=== PATIENT | male | born 1950 | race Caucasian/White ===

== ENCOUNTER → 2017-02-03 | Outpatient (CLI) | payer MEDICARE ==
[~2017-02-03] MED LIST: AMIO200T PO; AMLO10TA2 PO; ASPI-650 PO; ATEN25TA PO; CLON0.1T PO; LABE100T26 PO; LISI20TA PO; TERA5CAP3 PO
== END | disposition home or self-care (01) ==
LOC: CFH 13:36
PROVIDERS: ATTEND Internal Medicine Cardiovascular Disease
DX: I08.0 Rheumatic disorders of both mitral and aortic valves (principal); I10 Essential (primary) hypertension; I49.3 Ventricular premature depolarization
CPT/HCPCS: 93306

== ENCOUNTER 2018-08-25 07:44 | Inpatient (IN) | payer MEDICARE, OTHER ==
[~2018-08-25] VITALS: Ht 162.6 cm; Wt 54.3 kg
[~2018-08-25 07:44] MED LIST changes: -AMLO10TA2 PO; +AMLO10TA8 PO; -CLON0.1T PO; +CLON0.1T22 PO
[2018-08-25] MEDS ORDERED: HYDROmorphone 2 MG/ML, 1ML IVPush PRN (08:00)
--- NOTE | 2018-08-25 08:01 | NUR ---
Patient brought in by EMS for excessive weight loss, persistent vomiting, abdominal pain and increasing weakness. Patient reports he was recently diagnosed with renal failure, had an abdominal CT and was told there was "something wrong with my pancreas" so is scheduled for CT next week but felt he could not make it until then. Patient arrives alert, answering questions appropriately, in moderate distress. IV established by EMS prior to arrival with zofran 4mg administered en route. Call price placed within reach, continuous blood pressure, SPO2 and cardiac monitoring in place.
[2018-08-25] MEDS ORDERED: ONDANSETRON ODT 4 MG PO ONE (08:30)
[2018-08-25] MEDS ORDERED: ONDANSETRON ODT 4 MG ONE (08:37)
[2018-08-25] MEDS ORDERED: HYDROmorphone 2 MG/ML, 1ML ONE (08:38)
--- NOTE | 2018-08-25 08:57 | NUR ---
Patient medicated for pain as ordered and documented, supplemental oxygen via nasal cannula provided at 2LPM with dilaudid administration. Urinal at bedside for urine collection. Call price within reach.
[2018-08-25 09:39] LABS: MEAN CORPUSCULAR HEMOGLOBIN 31.8 pg (27.5-34.5); MEAN CORPUSCULAR HGB CONC 33.9 g/dL (33.2-36.2); MEAN CORPUSCULAR VOLUME 93.9 fL (81-97); MEAN PLATELET VOLUME 9.3 fL (7.4-10.4); PLATELET COUNT 336 x10^3/uL (130-400); RED BLOOD COUNT 4.15 x10^6/uL (4.38-5.82); RED CELL DISTRIBUTION WIDTH 16.5 % (9.4-14.8)
[2018-08-25 09:55] LABS: CHLORIDE 107 mmol/L (98-107)
[2018-08-25 10:00] LABS: ALANINE AMINOTRANSFERASE 245 U/L (12-78); ALKALINE PHOSPHATASE 466 U/L (45-117); ANION GAP 11 mmol/L (5-15); BILIRUBIN,TOTAL 14.1 mg/dL (0.2-1.0); CALCIUM 9.5 mg/dL (8.5-10.1); CREATININE 1.39 mg/dL (0.7-1.3); TOTAL PROTEIN 7.8 g/dL (6.4-8.2)
[2018-08-25] MEDS ORDERED: LISI-170 PO (10:16)
[2018-08-25] MEDS ORDERED: LABE300T2 PO (10:16)
--- NOTE | 2018-08-25 10:16 | NUR ---
Plan of care updated, patient reports he remains pain free. Waiting for abdominal ultrasound. Patient states he does not have urge to urinate at this time.
[2018-08-25 10:35] LABS: MD YES
[2018-08-25 10:37] LABS: BASOS#(MANUAL) 0.05 x10^3/uL (0-0.1); BASOS% (MANUAL) 1 % (0-1); LYMPH#(MANUAL) 1.15 x10^3/uL (1-3.4); LYMPHS% (MANUAL) 23 % (22-44); MONOS#(MANUAL) 0.15 x10^3/uL (0.3-2.7); MONOS% (MANUAL) 3 % (2-9); SEG#(MANUAL) 3.65 x10^3/uL (1.8-6.8); SEGS% (MANUAL) 73 % (42-75)
[2018-08-25 10:38] LABS: <RBC MORPHOLOGY> NORMAL
[2018-08-25 10:41] LABS: <PLATELET ESTIMATE> ADEQUATE; <PLT MORPHOLOGY> NORMAL PLT MORPH
--- NOTE | 2018-08-25 10:53 | NUR ---
Report to BRISEIDA Lantigua; care transferred at this time.
--- NOTE | 2018-08-25 11:20 | NUR ---
REPORT FROM RORO GOINS, ASSUME CARE OF PT AT THIS TIME. REVIEW OF CHART, NEED FOR UA STILL. PT REQUESTED TO PROVIDE UA, URINAL PROVIDED. CALL LIGHT WITHIN REACH.
--- NOTE | 2018-08-25 11:44 | NUR ---
URINE COLLECTED/SENT TO LAB. URINE DARK TEA COLORED. PT UPDATED ON POC, INCLUDING ADMISSION.
[2018-08-25 12:09] LABS: MICROSCOPIC INDICATED
[2018-08-25 12:14] LABS: CULTURE INDICATED? YES
[2018-08-25 12:58] VITALS: BP 169/113
[2018-08-25 13:20] VITALS: BP 169/113
[2018-08-25] MEDS ORDERED: hydrALAzine 20 MG/ML, 1ML IV PRN (14:00)
[2018-08-25] MEDS: SODIUM CHLORIDE 0.9% 1,000 ML IV SCH ×2 (14:02→22:28)
[2018-08-25] MEDS ORDERED: ONDANSETRON 2MG/ML, 2ML IVPush PRN (14:30)
[2018-08-25] MEDS ORDERED: TEMAZEPAM 15 MG CAPSULE PO PRN (14:30)
[2018-08-25 14:43] LABS: BILIRUBIN,TOTAL 14.3 mg/dL (0.2-1.0)
[2018-08-25 14:48] LABS: BILIRUBIN, DIRECT 10.4 mg/dL (0.1-0.2); BILIRUBIN,INDIRECT 3.9 mg/dL (0.0-2.0)
[2018-08-25 15:53] VITALS: BP 184/116
[2018-08-25] MEDS: ENOXAPARIN 40 MG/0.4 ML SQ SCH (15:54)
[2018-08-25] MEDS: hydrALAzine 20 MG/ML, 1ML IV PRN (15:55)
[2018-08-25] MEDS: morphine SULFATE 10 MG/ML, 1ML IVPush PRN ×2 (16:08→21:26)
[2018-08-25 16:12] VITALS: BP 146/95
[2018-08-25 18:50] VITALS: BP 147/96
[2018-08-26 00:50] VITALS: BP 148/95
[2018-08-26] MEDS: morphine SULFATE 10 MG/ML, 1ML IVPush PRN ×4 (04:52→19:53)
[2018-08-26 05:05] LABS: MEAN CORPUSCULAR HGB CONC 34.1 g/dL (33.2-36.2); MEAN CORPUSCULAR VOLUME 93.9 fL (81-97); MEAN PLATELET VOLUME 9.2 fL (7.4-10.4); PLATELET COUNT 302 x10^3/uL (130-400); RED BLOOD COUNT 3.73 x10^6/uL (4.38-5.82); RED CELL DISTRIBUTION WIDTH 16.7 % (9.4-14.8)
[2018-08-26 05:14] LABS: CHLORIDE 113 mmol/L (98-107)
[2018-08-26 05:26] LABS: ALANINE AMINOTRANSFERASE 206 U/L (12-78); ALBUMIN 2.7 g/dL (3.4-5.0); ALKALINE PHOSPHATASE 404 U/L (45-117); ANION GAP 8 mmol/L (5-15); BILIRUBIN,TOTAL 12.1 mg/dL (0.2-1.0); CALCIUM 9.3 mg/dL (8.5-10.1); CREATININE 1.26 mg/dL (0.7-1.3); TOTAL PROTEIN 7.1 g/dL (6.4-8.2)
[2018-08-26 06:03] LABS: MD YES
[2018-08-26 06:06] LABS: <PLATELET ESTIMATE> ADEQUATE; <PLT MORPHOLOGY> NORMAL PLT MORPH; <RBC MORPHOLOGY> NORMAL; EOS#(MANUAL) 0.04 x10^3/uL (0.0-0.4); EOS% (MANUAL) 1 % (1-7); LYMPH#(MANUAL) 1.41 x10^3/uL (1-3.4); LYMPHS% (MANUAL) 32 % (22-44); MONOS#(MANUAL) 0.35 x10^3/uL (0.3-2.7); MONOS% (MANUAL) 8 % (2-9); SEGS% (MANUAL) 59 % (42-75)
[2018-08-26] MEDS: SODIUM CHLORIDE 0.9% 1,000 ML IV SCH ×3 (06:15→23:04)
[2018-08-26 07:00] VITALS: BP 180/105
[2018-08-26] MEDS: hydrALAzine 20 MG/ML, 1ML IV PRN ×4 (08:24→19:12)
[2018-08-26] MEDS: PANTOPRAZOLE 40 MG IV IVPush SCH (08:26)
[2018-08-26 10:50] VITALS: BP 173/97
[2018-08-26 12:59] VITALS: BP 167/110
[2018-08-26 15:42] VITALS: BP 196/114
[2018-08-26] MEDS: ENOXAPARIN 40 MG/0.4 ML SQ SCH (15:42)
[2018-08-26 18:57] VITALS: BP_SYST 120; BP_SYST 172; BP_DIAS 104; BP_DIAS 79
[2018-08-26] MEDS: LABETALOL 300 MG TABLET PO SCH (19:53)
[2018-08-26] MEDS: LISINOPRIL 20 MG TABLET PO SCH (19:53)
[2018-08-26] MEDS ORDERED: TERAZOSIN 5MG CAPSULE PO SCH (21:00)
[2018-08-27 00:46] VITALS: BP 122/71
[2018-08-27 05:58] LABS: ALBUMIN 2.3 g/dL (3.4-5.0); ANION GAP 7 mmol/L (5-15); CHLORIDE 117 mmol/L (98-107)
[2018-08-27 06:02] LABS: ALANINE AMINOTRANSFERASE 180 U/L (12-78); ALKALINE PHOSPHATASE 327 U/L (45-117); BILIRUBIN,TOTAL 9.7 mg/dL (0.2-1.0); CREATININE 1.19 mg/dL (0.7-1.3); TOTAL PROTEIN 6.1 g/dL (6.4-8.2)
[2018-08-27 06:17] LABS: MEAN CORPUSCULAR HEMOGLOBIN 31.2 pg (27.5-34.5); MEAN CORPUSCULAR HGB CONC 33.1 g/dL (33.2-36.2); MEAN CORPUSCULAR VOLUME 94.3 fL (81-97); MEAN PLATELET VOLUME 9.8 fL (7.4-10.4); PLATELET COUNT 276 x10^3/uL (130-400); RED CELL DISTRIBUTION WIDTH 16.3 % (9.4-14.8)
[2018-08-27 06:43] VITALS: BP 170/94
[2018-08-27 07:22] LABS: MD YES
[2018-08-27] MEDS: LABETALOL 300 MG TABLET PO SCH (07:24)
[2018-08-27] MEDS: LISINOPRIL 20 MG TABLET PO SCH (07:24)
[2018-08-27] MEDS: PANTOPRAZOLE 40 MG IV IVPush SCH (07:25)
[2018-08-27] MEDS: SODIUM CHLORIDE 0.9% 1,000 ML IV SCH ×2 (07:25→15:00)
[2018-08-27 07:31] LABS: EOS#(MANUAL) 0.07 x10^3/uL (0.0-0.4); EOS% (MANUAL) 2 % (1-7); LYMPH#(MANUAL) 1.09 x10^3/uL (1-3.4); LYMPHS% (MANUAL) 32 % (22-44); MONOS#(MANUAL) 0.34 x10^3/uL (0.3-2.7); MONOS% (MANUAL) 10 % (2-9); SEGS% (MANUAL) 56 % (42-75)
[2018-08-27 07:32] LABS: <PLATELET ESTIMATE> ADEQUATE; ANISOCYTOSIS 1+; LARGE PLATELETS 1+; TARGET CELLS 1+
[2018-08-27] MEDS ORDERED: OXYC5TAB3 PO (12:27)
[2018-08-27] MEDS ORDERED: TRAM50TA2 PO (12:27)
[2018-08-27] MEDS ORDERED: PANT20TA2 PO (12:27)
[2018-08-27] MEDS ORDERED: ONDA4TAB13 SL (12:27)
[2018-08-27] MEDS ORDERED: POLY17PO5 PO (12:27)
[2018-08-27] MEDS ORDERED: hydrALAzine 20 MG/ML, 1ML IV ONE (12:30)
[2018-08-27] MEDS ORDERED: METOPROLOL TARTRATE 100 MG TABLET PO ONE (12:30)
[2018-08-27 13:15] VITALS: BP 154/82
[2018-08-27] MEDS: ENOXAPARIN 40 MG/0.4 ML SQ SCH (14:30)
== END 2018-08-27 17:22 | disposition home health service (06) | DRG 438 ==
LOC: ED 10:00 → EDIP 11:42 → 3NE 12:45
PROVIDERS: ADMIT Internal Medicine; ATTEND Internal Medicine
DX: K85.10 Biliary acute pancreatitis without necrosis or infection (principal); E43 Unspecified severe protein-calorie malnutrition; N17.0 Acute kidney failure with tubular necrosis; I50.30 Unspecified diastolic (congestive) heart failure; K80.21 Calculus of gallbladder without cholecystitis with obstruction; K86.2 Cyst of pancreas; I11.0 Hypertensive heart disease with heart failure; I48.0 Paroxysmal atrial fibrillation; N20.0 Calculus of kidney; N28.1 Cyst of kidney, acquired; N40.0 Benign prostatic hyperplasia without lower urinary tract symptoms; Z86.010 Personal history of colon polyps; Z68.20 Body mass index [BMI] 20.0-20.9, adult
CPT/HCPCS: 36415; 71045; 74183; 76700; 80053; 81001; 82105; 82247; 82248; 82378; 83690; 83735; 84100; 84443; 85025; 86301; 87086; 93005; G0378; J1170; J1650; Q0162; C9113; J0360; J2270; J7030

== ENCOUNTER 2018-08-29 09:04 | Day surgery (SDC) | payer MEDICARE, OTHER ==
[~2018-08-29] VITALS: Ht 162.6 cm; Wt 57.7 kg
[~2018-08-29 09:04] MED LIST changes: +LABE300T2 PO; +LISI-170 PO; +ONDA4TAB13 SL; +OXYC5TAB3 PO; +PANT20TA2 PO; +POLY17PO5 PO; +TRAM50TA2 PO
[2018-08-29] MEDS ORDERED: LACTATED RINGERS 1,000 ML IV SCH (09:58)
[2018-08-29 09:59] VITALS: BP 141/98
[2018-08-29] MEDS ORDERED: FENTANYL PF 100 MCG/2ML ONE ×2 (13:42→14:19)
[2018-08-29] MEDS ORDERED: ACETAMINOPHEN 325 MG TABLET PO PRN (14:00)
[2018-08-29] MEDS ORDERED: PROMETHAZINE 25 MG SUPP PR PRN (14:00)
[2018-08-29] MEDS ORDERED: ONDANSETRON 2MG/ML, 2ML IV PRN (14:00)
[2018-08-29] MEDS ORDERED: FENTANYL PF 100 MCG/2ML IV PRN (14:00)
[2018-08-29] MEDS ORDERED: MEPERIDINE/PF 25MG/0.5ML IVPush PRN (14:00)
[2018-08-29] MEDS ORDERED: PROMETHAZINE 25 MG/ML, 1ML IV PRN (14:00)
[2018-08-29] MEDS ORDERED: ONDANSETRON ODT 8 MG PO PRN (14:00)
[2018-08-29] MEDS ORDERED: OXYcodone 5 MG/5 ML ORAL.SOL UDC PO PRN (14:00)
[2018-08-29] MEDS ORDERED: GLYCOPYRROLATE 0.2MG/1ML, 5ML ONE (14:50)
[2018-08-29] MEDS ORDERED: ONDANSETRON 2MG/ML, 2ML ONE (14:50)
[2018-08-29] MEDS ORDERED: PROPOFOL 10 MG/ML, 20ML ONE (14:50)
[2018-08-29] MEDS ORDERED: CEFAZOLIN 1,000 MG ONE (14:50)
[2018-08-29] MEDS ORDERED: NEOSTIGMINE 1 MG/ML, 10ML ONE (14:50)
[2018-08-29] MEDS ORDERED: SUCCINYLCHOLINE 20 MG/ML, 10ML ONE (14:50)
[2018-08-29] MEDS ORDERED: ROCURONIUM 10MG/ML,5ML ONE (14:50)
[2018-08-29] MEDS ORDERED: DEXAMETHASONE 4 MG/ML, 1ML ONE (14:50)
[2018-08-29] MEDS ORDERED: OMNIPAQUE 350 MG/ML, 50 ML BOTTLE ONE (15:02)
[2018-08-29] MEDS ORDERED: hydrALAzine 20 MG/ML, 1ML ONE (15:34)
[2018-08-29] MEDS: hydrALAzine 20 MG/ML, 1ML IV PRN ×2 (15:36→16:10)
== END 2018-08-29 17:15 | disposition home or self-care (01) ==
LOC: OUT 09:04
PROVIDERS: ATTEND Internal Medicine
DX: K83.1 Obstruction of bile duct (principal); K29.80 Duodenitis without bleeding; I10 Essential (primary) hypertension; N40.0 Benign prostatic hyperplasia without lower urinary tract symptoms; Z88.0 Allergy status to penicillin
CPT/HCPCS: 43242; 43274; 74328; 88172; 88173; 88177; 88307; C1769; C1874; J0330; J0360; J0690; J1100; J2405; J2704; J2710; J3010; J7120; Q9967

== ENCOUNTER 2018-09-25 11:58 | Day surgery (SDC) | payer OTHER ==
[~2018-09-25] VITALS: Ht 160 cm; Wt 50.9 kg
[2018-09-25] MEDS ORDERED: FENTANYL PF 100 MCG/2ML ONE ×2 (12:26→15:12)
[2018-09-25 12:34] VITALS: BP 144/108
[2018-09-25] MEDS ORDERED: LACTATED RINGERS 1,000 ML IV SCH (12:34)
[2018-09-25] MEDS ORDERED: LABE300T2 PO (12:56)
[2018-09-25] MEDS ORDERED: TERA10CA3 PO (12:56)
[2018-09-25] MEDS ORDERED: BUPIVACAINE/EPI 0.5% 1:200K ONE (13:08)
[2018-09-25] MEDS ORDERED: HEPARIN 5,000 UNITS/ML, 1ML ONE (13:09)
[2018-09-25] MEDS ORDERED: HEPARIN 1,000 UNITS/ML, 10ML ONE (13:09)
[2018-09-25] MEDS ORDERED: LIDOCAINE 1%, 20ML ONE ×2 (13:09→13:11)
[2018-09-25 13:12] VITALS: BP 142/110
[2018-09-25] MEDS ORDERED: LABETALOL 5MG/ML, 20ML IVPush STA (13:19)
[2018-09-25] MEDS ORDERED: METOPROLOL 1 MG/ML, 5ML ONE (13:30)
[2018-09-25] MEDS ORDERED: CEFAZOLIN 1,000 MG ONE (14:19)
[2018-09-25] MEDS ORDERED: GLYCOPYRROLATE 0.2MG/1ML, 5ML ONE (14:19)
[2018-09-25] MEDS ORDERED: ROCURONIUM 10MG/ML,5ML ONE (14:19)
[2018-09-25] MEDS ORDERED: PROPOFOL 10 MG/ML, 20ML ONE (14:19)
[2018-09-25] MEDS ORDERED: DEXAMETHASONE 4 MG/ML, 1ML ONE (14:19)
[2018-09-25] MEDS ORDERED: ONDANSETRON 2MG/ML, 2ML ONE (14:19)
[2018-09-25] MEDS ORDERED: NEOSTIGMINE 1 MG/ML, 10ML ONE (14:19)
[2018-09-25] MEDS ORDERED: SUCCINYLCHOLINE 20 MG/ML, 10ML ONE (14:19)
[2018-09-25] MEDS ORDERED: hydrALAzine 20 MG/ML, 1ML ONE (14:54)
[2018-09-25] MEDS ORDERED: METOPROLOL 1 MG/ML, 5ML IV PRN (15:00)
[2018-09-25] MEDS ORDERED: HYDROmorphone 2 MG/ML, 1ML IVPush PRN (15:00)
[2018-09-25] MEDS ORDERED: MEPERIDINE/PF 25MG/0.5ML IVPush PRN (15:00)
[2018-09-25] MEDS ORDERED: PROCHLORPERAZINE 5 MG/ML, 2ML IV PRN (15:00)
[2018-09-25] MEDS ORDERED: OXYcodone 5 MG/5 ML ORAL.SOL UDC PO PRN (15:00)
[2018-09-25] MEDS ORDERED: PROMETHAZINE 25 MG/ML, 1ML IV PRN (15:00)
[2018-09-25] MEDS ORDERED: hydrALAzine 20 MG/ML, 1ML IV PRN (15:00)
[2018-09-25] MEDS ORDERED: LABETALOL 5MG/ML, 20ML IV PRN (15:00)
[2018-09-25] MEDS ORDERED: HALOPERIDOL 5 MG/ML IV PRN (15:00)
[2018-09-25] MEDS ORDERED: DIPHENHYDRAMINE 50 MG/ML, 1ML IVPush PRN (15:00)
[2018-09-25] MEDS ORDERED: OXYcodone 5 MG/5 ML ORAL.SOL UDC ONE (15:13)
[2018-09-25] MEDS: FENTANYL PF 100 MCG/2ML IV PRN ×2 (15:14→15:22)
== END 2018-09-25 17:00 | disposition home or self-care (01) ==
LOC: OUT 11:58
PROVIDERS: ATTEND Surgery
DX: C25.0 Malignant neoplasm of head of pancreas (principal); N20.0 Calculus of kidney; I10 Essential (primary) hypertension; N40.0 Benign prostatic hyperplasia without lower urinary tract symptoms; I48.0 Paroxysmal atrial fibrillation; Z79.891 Long term (current) use of opiate analgesic; Z79.899 Other long term (current) drug therapy; Z88.0 Allergy status to penicillin; Z88.8 Allergy status to other drugs, medicaments and biological substances
CPT/HCPCS: 36561; 77001; C1788; J0330; J0360; J0690; J1100; J1644; J2405; J2704; J2710; J3010; J7120; 76000

== ENCOUNTER 2018-10-03 08:27 | Outpatient (CLI) | payer OTHER ==
[~2018-10-03 08:27] MED LIST changes: +TERA10CA3 PO
== END 2018-10-03 23:59 | disposition home or self-care (01) ==
LOC: PETCFH 08:27
PROVIDERS: ATTEND Internal Medicine
DX: C25.0 Malignant neoplasm of head of pancreas (principal)
CPT/HCPCS: 78815; A9552

== ENCOUNTER 2018-12-26 08:46 | Outpatient (CLI) | payer OTHER ==
[~2018-12-26] VITALS: Ht 162.6 cm; Wt 42.5 kg
[2018-12-26] MEDS ORDERED: LACTATED RINGERS 1,000 ML IV SCH (09:12)
[2018-12-26 09:41] VITALS: BP 163/121
== END 2018-12-26 23:59 | disposition home or self-care (01) ==
LOC: OUT 08:46 → EDSTATUS 11:15 → OUT 23:59
PROVIDERS: ATTEND Internal Medicine
DX: C25.9 Malignant neoplasm of pancreas, unspecified (principal); Z53.9 Procedure and treatment not carried out, unspecified reason; I10 Essential (primary) hypertension; Z88.6 Allergy status to analgesic agent; Z88.8 Allergy status to other drugs, medicaments and biological substances
CPT/HCPCS: 93005